=== PATIENT | female | born 1995 | race American Indian/Alaskan Native ===

== ENCOUNTER 2018-05-09 08:00 | Inpatient (IN) | payer BC, MEDICAID ==
[2018-05-09] MEDS: Tranexamic Acid 1,000 MG in Sodium Chloride 0.9% 100 ML IV PRN ×2 (09:44→19:43)
[2018-05-09] MEDS ORDERED: ePHEDrine 50 MG/ML SDV IVPUSH PRN (17:57)
[2018-05-09] MEDS ORDERED: Ibuprofen 800 MG Tab PO PRN (17:57)
[2018-05-09] MEDS ORDERED: ceFAZolin 2 GM in Premix Bag 1 BAG IV ONE (17:57)
[2018-05-09] MEDS ORDERED: Naloxone 2 MG/2 ML Syringe IVPUSH PRN (17:57)
[2018-05-09] MEDS ORDERED: Misoprostol 400 MCG (4 X 100 MCG TAB) RECTAL PRN (17:57)
[2018-05-09] MEDS ORDERED: Methylergonovine 0.2 MG/1 ML Amp IM PRN (17:57)
[2018-05-09] MEDS ORDERED: Ondansetron 4 MG/2 ML SDV IV PRN (17:57)
[2018-05-09] MEDS ORDERED: Citric Acid/Sodium Citrate Solution 30 ML Cup PO ONE (17:57)
[2018-05-09] MEDS ORDERED: Acetaminophen/oxyCODONE 325-5 MG Tab PO PRN (17:57)
[2018-05-09] MEDS ORDERED: Acetaminophen 325 MG Tab PO PRN (17:57)
[2018-05-09] MEDS ORDERED: Carboprost Tromethamine 250 MCG/1 ML Amp IM ONE (17:57)
[2018-05-09] MEDS ORDERED: diphenhydrAMINE 50 MG/ML SDV IVPUSH PRN (17:57)
[2018-05-09] MEDS ORDERED: Oxytocin/Normal Saline 30 UNIT/500 ML BAG IV SCH (18:00)
[2018-05-09] MEDS: Lactated Ringers 1,000 ML IV SCH ×3 (18:26→22:53)
[2018-05-10] MEDS: Simethicone 80 MG Tab.Chew PO SCH ×5 (03:52→21:33)
[2018-05-10] MEDS: Docusate Sodium 100 MG Cap PO PRN ×2 (10:01→21:33)
[2018-05-10] MEDS: Acetaminophen/oxyCODONE 325-5 MG Tab PO PRN ×3 (10:05→17:47)
[2018-05-10] MEDS: Ketorolac 30 MG/ML SDV IVPUSH SCH (11:00)
[2018-05-10] MEDS ORDERED: Ibuprofen 800 MG Tab PO PRN (14:00)
[2018-05-11] MEDS: Docusate Sodium 100 MG Cap PO PRN (08:28)
[2018-05-11] MEDS: Acetaminophen/oxyCODONE 325-5 MG Tab PO PRN ×3 (08:28→17:08)
[2018-05-11] MEDS: Simethicone 80 MG Tab.Chew PO SCH ×3 (08:28→17:09)
[2018-05-11] MEDS: Prenatal Multivitamin with Calcium/Folic Acid/Iron Tab PO SCH (08:32)
[2018-05-12] MEDS: Simethicone 80 MG Tab.Chew PO SCH ×2 (04:21→08:58)
[2018-05-12] MEDS: Acetaminophen/oxyCODONE 325-5 MG Tab PO PRN (07:40)
[2018-05-12] MEDS: Prenatal Multivitamin with Calcium/Folic Acid/Iron Tab PO SCH (07:40)
[2018-05-12 10:54] VITALS: BP 139/82
[2018-05-12] MEDS ORDERED: Bupivacaine 0.75%/D5W 2 ML Amp INJECT ONE (11:46)
[2018-05-12] MEDS ORDERED: Dexamethasone 4 MG/ML SDV IV ONE (11:46)
[2018-05-12] MEDS ORDERED: Ondansetron 4 MG/2 ML SDV IV ONE (11:46)
[2018-05-12] MEDS ORDERED: Morphine PF 1 MG/ML Amp INJECT ONE (11:46)
[2018-05-12] MEDS ORDERED: Lactated Ringers 1,000 ML IV ONE (11:46)
--- NOTE | 2018-05-12 12:15 | OR ---
DATE: 05/09/2018 PREOPERATIVE DIAGNOSES: 1. Intrauterine 38 and 5/7 weeks by 22 and 2/7 weeks' ultrasound. 2. Contractions upon admission. 3. History of with thin lower uterine segment. Recommend delivery with repeat low transverse between 37 and 38 weeks. 4. Previous x3, requests repeat low transverse . 5. Limited/insufficient care. Two visits at [facility] and at least 1 at [facility], last visit was 03/25/2018, at [facility] with Dr. Huntley, that is documented. 6. Impaired glucose tolerance with sugar of 148 on 03/25/2018. No followup thereafter. Blood sugar 106 upon admission. 7. History of hemorrhage with 2 units packed red blood cells with last and last D and C. 8. Positive urine drug screen for methamphetamines and amphetamines. 9. History of asthma. 10.History of preeclampsia on aspirin prophylaxis until yesterday. 11.Group B streptococcus unknown. 12.G4, P2-0-1-2. 13.The patient was given 1 g of tranexamic acid prior to delivery. POSTOPERATIVE DIAGNOSES: 1. Intrauterine 38 and 5/7 weeks by 22 and 2/7 weeks' ultrasound, delivered. 2. Contractions upon admission. 3. History of with thin lower uterine segment. Recommend delivery with repeat low transverse between 37 and 38 weeks. 4. Previous x3, requests repeat low transverse . 5. Limited/insufficient care. Two visits at [facility] and at least 1 at [facility], last visit was 03/25/2018, at [facility] with Dr. Huntley, that is documented. 6. Impaired glucose tolerance with sugar of 148 on 03/25/2018. No followup thereafter. Blood sugar 106 upon admission. 7. History of hemorrhage with 2 units packed red blood cells with last and last D and C. 8. Positive urine drug screen for methamphetamines and amphetamines. 9. History of asthma. 10.History of preeclampsia on aspirin prophylaxis until yesterday. 11.Group B streptococcus unknown. 12.G4, P2-0-1-2. 13.The patient was given 1 g of tranexamic acid prior to delivery. 14.Nuchal cord x1 reduced bluntly with delivery. PROCEDURE PERFORMED: Repeat low transverse . BLOCKER HEATED METAL FORMS: Luli Beth MD. ANESTHESIA: Spinal. ESTIMATED BLOOD LOSS: 600 mL. IV FLUIDS: 1000 mL lactated Ringer's, 200 mL of Pitocin. URINE OUTPUT: 75 mL and agustín colored. START: 1938 hours. UTERINE INCISION: 1941 hours. DELIVERY: 1942 hours. STOP: 1999 hours. FINDINGS: Male, scores 9 and 9, weight pending. DESCRIPTION OF PROCEDURE IN DETAIL: After proper consent was obtained, the patient was brought to the operating room where a spinal anesthetic was administered. A Garza was placed in preop under sterile conditions. The abdomen was prepped and draped in normal sterile fashion with the patient placed in supine position with a left lateral tilt. A skin incision was then made over the lower abdomen in a transverse Pfannenstiel-type fashion over a previous scar. This was carried down the fascia and scored in the midline. Subcutaneous tissue was raked laterally by Pan retractor, and fascial incision was extended in transverse fashion using curved Ervin's. Mirtha clamps x2 were used to grasp the superior aspect of the fascia, and rectus muscles were dissected from the fascia using sharp and blunt technique. In a similar fashion, Mirtha clamps x2 were used to grasp the inferior portion of the incision, and rectus and pyramidalis muscles were dissected from the fascia using sharp and blunt technique. Rectus muscles were in the midline with blunt technique. Abdominal cavity was entered in blunt technique, and incision was extended superiorly and inferiorly with blunt technique. There were some adhesions anteriorly along the left portion of the uterus, these were subsequently lysed under direct visualization with electrocautery. Subsequently, Shamir O large retractor was then introduced and used. Vesicouterine peritoneum was identified and incised in a transverse fashion with Metzenbaum scissors and bladder flap was made digitally. A curvilinear incision was made on the lower uterine segment at 1942 hours. The uterus was entered sharply. Uterine incision was then extended in transverse fashion using blunt technique. Bulging bag of water was noted and ruptured with Allis clamps. Clear fluid returned. vertex was then delivered through the incision followed by rest of the infant with nuchal cord x1 reduced bluntly with delivery. Mouth and nares were suctioned on the patient's lap. Cord was doubly clamped and cut and the was brought to the team. Then, approximately 10 mL of cord blood was obtained for labs. Placenta was then delivered with gentle cord traction and fundal massage. Uterine cavity was then cleared of all blood clots and debris with lap sponge. Gomez clamps were used to grasp the uterine incision, and this was closed in a running locked fashion and tied at lateral margins with 1-0 Vicryl. First inspection of the uterine incision revealed hemostasis. Shamir O retractor was then removed. Pericolic gutters were then cleared of all blood clots and debris with lap sponge. Anterior cul-de-sac was irrigated copiously, and all blood clots and debris removed. Second and final inspection of the uterine incision and anterior cul-de-sac revealed hemostasis. Rectus muscles were then reapproximated in midline with [id number] stitch using 1-0 Vicryl. Subfascial tissue was found to be hemostatic, and fascia was closed in a running fashion, tied at lateral margins with 0 looped PDS. Subcutaneous tissue was irrigated copiously and hemostasis reassured. Skin was reapproximated with medium marcin. Sterile Aquacel dressing applied. Uterine fundus was firm and massaged at the conclusion of the case at approximately -2 below umbilicus. No immediate complications were noted. Sponge, lap, and needle counts were correct. The patient received 2 g of Ancef preoperatively, Pitocin per protocol, and TXA preoperatively. We will defer Toradol at the conclusion of the case for pain control. Mother and are currently stable at the time of dictation. [facility] /[id number]
[2018-05-12] MEDS ORDERED: Oxytocin/Normal Saline 30 UNIT/500 ML BAG IV ONE (12:29)
--- NOTE | 2018-05-12 12:48 | HP ---
PATIENT IDENTIFICATION: Tri Faulkner is a 22-year-old, G4, P2-0-1-2, intrauterine at 38 and 5/7 weeks by 22 and 2/7 weeks' ultrasound with history of previous x2 with last with a very thin lower uterine segment with recommendation to be delivered at 37 to 38 weeks per operative report with limited insufficient care, who presents today in regard to the above. HISTORY OF PRESENT ILLNESS: The patient has been seen at [facility] in the past. She was initially evaluated in the clinic by Dr. Huntley on 03/17/2018, and another visit on 03/25/2018, and then I was unable to reach the patient thereafter. She was approximately 32 and 2/7 weeks at that point in time. We have been trying to reach her due to her thin lower uterine segment and recommendation at 37 to 38 weeks, which she has almost passed at this point in time. The patient does state today she has had some cramps/contractions felt in the lower abdomen, and these are monitored currently on her tocometer. These coincide with her history. She notes last oral intake was approximately 45 minutes to an hour ago with some sandwiches and has been on aspirin until yesterday with last dose being yesterday because she had a history of preeclampsia and was taking this for prevention. She has a history of positive urine drug screen on 12/31/2017, for cannabinoids and amphetamines and confirmed positive for amphetamines in the clinic on 03/17/2018. She admits to using THC. Records were called for, reviewed as below, and supplemented by the patient history. OBSTETRICAL HISTORY: 1. In 10/2016, had a miscarriage with a D and C done with blood transfusion of 2 units packed red blood cells. 2. On 03/07/2016, 38 and 1/7 weeks, delivered a female, repeat low transverse , weighing 3490 g, noted to have positive oxycodone and THC, no care, anemia, transfused 2 units, had some issues with bleeding in PACU that resolved after evacuation of additional clots. 3. On 02/22/2015, 40 and 4/7 weeks, delivered male, primary low transverse C- section, weighing 3995 g. ANTEPARTUM LABORATORY DATA: ABO blood type O positive. Negative antibody. Rubella immune. RPR nonreactive. Negative hepatitis B surface antigen. Hep C, HIV, GC and Chlamydia, wet prep had some BV. ALLERGIES: Sulfa. MEDICATIONS: 1. vitamins. 2. Tums. 3. Aspirin, last dose yesterday 81 mg. PAST MEDICAL/PAST SURGICAL HISTORY: Remarkable for as above. She also had a fracture of the right arm requiring a surgery. In 2014 with the first had preeclampsia and history of blood transfusion with her post , and in 2016, reactive air disease is noted but has used nebs and inhalers in the past for her breathing. FAMILY HISTORY: Arthritis in mother. Diabetes in father and paternal grandfather. Heart disease in paternal grandfather. High blood pressure in father. Stroke runs in the family. Negative family history of defects, thyroid disease, bleeding problems, clotting disorders, or anesthesia problems. SOCIAL HISTORY: Lives in [place] with 2 children. Boyfriend, Rickey Wu, father of baby. No pets. Not working currently. Denies any alcohol. Describes drug use as above with positive methamphetamine today on drug screen. She does smoke cigarettes. REVIEW OF SYSTEMS: Notable for her cramping/contractions felt in the lower abdomen. She has had good movement. No spotting, bleeding, or leaking. Otherwise reviewed fully and felt to be noncontributory. OBJECTIVE: Vital Signs: Blood pressure 135/71, heart rate 101, and temperature 98.3. Appearance: Female, appears her stated age, acting appropriate for age, nontoxic in appearance. HEENT: Head atraumatic. EOMs intact. PERRLA. No scleral icterus. No obvious otorhinorrhea Mucous membranes are moist. Neck: No obvious tenderness. Lungs: Clear to auscultation bilaterally. No increased work of breathing. Heart: S1 and S2. Regular rate and rhythm. Abdomen: Gravid, Afshin's indeterminate. Nontender and nondistended. Bowel sounds positive. No other organomegaly, pulsatile masses, or obvious hernias. No rebound, rigidity, or guarding with Pfannenstiel scar noted. Genitourinary: Deferred. Rectal: Deferred. Extremities: No peripheral edema. Deep tendon reflexes 2-3/4 bilaterally and symmetric in lower extremities. Psychiatric: Mood and affect are congruent. Judgment and insight are intact. Skin: Without any cyanosis, clubbing, or jaundice. INVESTIGATIONS: Urine drug screen was positive for methamphetamines and amphetamines. CBC reveals white cell count 10.4, hemoglobin 11.8, platelets 191. A bedside blood sugar is 106. Tocometer at current time of dictation within less than 10 minutes there have been 2 to 3 contractions with heart tones with no evidence of 15 x 15 beat per minute accelerations as of 1820 hours. ASSESSMENT: 1. Intrauterine at 38 and 5/7 weeks by 22 and 2/7 weeks' ultrasound. 2. Contractions upon admission and coinciding with the tocometer. 3. History of section with thin lower uterine segment with recommended delivery with repeat low transverse at 37 to 38 weeks per previous operative report. 4. Previous section x2, request repeat low transverse section. 5. Limited insufficient care. 6. Group B streptococcus unknown. GBS will be done today. 7. Impaired glucose tolerance with sugar of 148 on 03/25/2018, with blood sugar today 106. 8. History of hemorrhage with 2 units packed red blood cells noted with her dilation and curettage and with her last section as above. 9. Positive urine drug screen for methamphetamines and amphetamines upon admit. 10.History of preeclampsia on aspirin prophylaxis with yesterday being last dose. 11. 4, para 2-0-1-2. PLAN: As there are current no accelerations noted on the heart tones, the patient is having contractions and has a thin lower uterine segment, with recommendation to deliver between 37 and 38 weeks, and she is almost past 38 weeks. I did discuss with the patient recommendation to proceed with repeat low transverse . I did discuss nonreassuring status as well. Emergent type has been called for and discussed with [employer]ATOR through nurse. I did discuss with her the risks, benefits, alternatives, and complications of C- section including, but not limited to, infection, bleeding, damage to internal organs such as bowel, bladder, tubes, uterus, ovaries, sometimes fetus rarely needing a blood transfusion or further surgery and even rarer maternal or . She understands and agrees and wishes to proceed. Verbal and written consent were obtained. Questions were answered. We will proceed to the OR as soon as crew is ready and available. [facility] /[id number]
--- NOTE | 2018-05-12 13:29 | PN ---
DATE: 05/10/2018 Postoperative day #1, status post repeat low-transverse . SUBJECTIVE: The patient has been tolerating p.o.'s. She has not ambulated much. Garza is in place. No flatus at this point in time. Pain is under control. OBJECTIVE: Vital Signs: Temperature 97.6, heart rate 64, blood pressure 125/61, and respiratory rate 18. Lungs: Clear to auscultation bilaterally. Heart: S1 and S2. Regular rate and rhythm. Pelvic: Firm uterus at -1 below umbilicus. Aquacel dressing dry and intact. Extremities: SCDs are on. LABORATORY DATA: White cell count 15.7, hemoglobin 10.6, and platelets 173. ASSESSMENT: 1. Postoperative day #1, status post repeat low-transverse section. 2. Anemia of acute blood loss. Hemoglobin dropped from 11.8 to 10.6. 3. Decreasing platelets, 191 to 173. PLAN: We will repeat CBC tomorrow, follow closely, and plans were discussed with the patient. She understands and agrees with the above treatment plan. [facility] /[id number]
--- NOTE | 2018-05-12 13:32 | PN ---
DATE: 05/11/2018 Postoperative day #2. SUBJECTIVE: The patient is tolerating p.o., ambulating, urinating, passing flatus. Pain has been under control, but she felt that she walked too much yesterday and she is somewhat sore. OBJECTIVE: Vital Signs: Temperature 97.8, heart rate 73, blood pressure 124/66, respiratory rate 18. Lungs: Clear to auscultation bilaterally. Heart: S1 and S2. Regular rate and rhythm. Pelvic: Firm uterus -2 below umbilicus. Aquacel dressing is dry and intact. Extremities: No peripheral edema. No calf pain. LABORATORY DATA: Labs from yesterday revealed that her hemoglobin dropped from 11.8 to 10.6 predelivery to postdelivery, and white cell count up to 15.7 from 10.4. ASSESSMENT: 1. Postoperative day #2, status post repeat low transverse section. 2. Anemia of acute blood loss. 3. Leukocytosis postoperative day #1. PLAN: We will repeat CBC tomorrow. The patient is otherwise asymptomatic in terms of her hemoglobin. She denies any chest pain, shortness of breath, or lightheadedness. There have been no fevers, but we will re-evaluate tomorrow. Potential discharge for tomorrow as well. [facility] /[id number]
--- NOTE | 2018-05-13 10:32 | DISCH ---
ADMITTING DIAGNOSES: 1. Intrauterine at 38 and 5/7 weeks by 22 and 2/7 weeks' ultrasound. 2. History of section with thin lower uterine segment. Recommend delivery with repeat low-transverse section between 37 and 38 weeks from previous operative report. 3. Contraction upon admit. 4. Previous section x2, request repeat low-transverse section. 5. Impaired glucose tolerance. One-hour GTT being 148 on 03/25/2018. No followup thereafter. 6. Limited/insufficient care. 7. History of hemorrhage. Two units of packed red blood cells with last section and with last dilatation and curettage. 8. Positive urine drug screen for methamphetamines and amphetamines. 9. History of asthma. 10.History of preeclampsia. 11.Off aspirin yesterday due to preeclampsia prophylaxis. 12.Group B streptococcus unknown. 13.G4, P-2-0-1-2. DISCHARGE DIAGNOSES: 1. Intrauterine at 38 and 5/7 weeks by 22 and 2/7 weeks' ultrasound, delivered. 2. History of section with thin lower uterine segment. Recommend delivery with repeat low-transverse section between 37 and 38 weeks from previous operative report. 3. Contraction upon admit. 4. Previous section x2, request repeat low-transverse section. 5. Impaired glucose tolerance. One-hour GTT being 148 on 03/25/2018. No followup thereafter. 6. Limited/insufficient care. 7. History of hemorrhage. Two units of packed red blood cells with last section and with last dilatation and curettage. 8. Positive urine drug screen for methamphetamines and amphetamines. 9. History of asthma. 10.History of preeclampsia. 11.Off aspirin day prior to admit due to preeclampsia prophylaxis. 12.Group B streptococcus unknown. 13.G4, P-2-0-1-2. 14.Repeat low transverse section. 15.Nuchal cord x1, reduced bluntly with delivery. 16.True cord knot. HISTORY OF PRESENT ILLNESS: Please see H and P. SUMMARY OF HOSPITAL COURSE: The patient was admitted on the above date with the above diagnoses, underwent a repeat low-transverse with an EBL of 600 mL under spinal, yielding a male. scores 9 and 9, weighing 8 pounds 6 ounces (3805 g). Please see operative note for further details. This had a true cord knot as well as a nuchal cord x1, reduced bluntly with delivery. Postoperative days #1 and #2, please see progress note. Postoperative day #3, date of discharge, the patient was tolerating p.o.'s, ambulating, urinating, passing flatus, and requesting discharge. PHYSICAL EXAMINATION: Vital Signs: Last set of vitals updated and listed in the chart. Temperature 98.5, heart rate 83, blood pressure 120/59, and respiratory rate 16. Lungs: Clear to auscultation bilaterally. Heart: S1 and S2. Regular rate and rhythm. Abdomen: Firm uterus approximately around the umbilicus. Aquacel dressing dry and intact. LABORATORY DATA: Discharge white cell count 11.4, hemoglobin 10.4, and platelets 222. CONDITION ON DISCHARGE COMPARED TO CONDITION ON ADMISSION: Improved. DISCHARGE INSTRUCTIONS: Diet as tolerated. Activity; no lifting more than 20 pounds. No sit-ups, straining, and pelvic rest for the next 6 weeks with immediate return to fertility discussed with the patient. Reasons to return or go to the emergency room were discussed with the patient in detail including, but not limited to, temperature greater than 100.4, foul- smelling discharge, red hot tender breasts, increased vaginal bleeding, or increasing pain, drainage, or redness around the incision. FOLLOWUP: Follow up on 05/15/2018, for staple removal. I did discuss with her in the interim reasons to return or go to the emergency room in regard to her . DISCHARGE MEDICATIONS: 1. [id number] ibuprofen for pain. 2. Percocet 5/325 one to two q.6 hours p.r.n., #15, no refills. Discussed the use of the medication, adverse and wanted effects, as well as precautions with driving. 3. Iron sulfate 325 b.i.d. x6 weeks. 4. vitamins daily x6 weeks. 5. Colace 100 mg b.i.d. p.r.n. The patient understands and agrees with the above treatment plan. The importance of followup and ramifications of not doing so were discussed with the patient. [facility] /[id number] [facility]
== END 2018-05-12 11:30 | disposition home or self-care (01) | DRG 540 ==
LOC: DL.MS 18:02 → OBSVTOIN 19:43 → DL.MS 19:43
PROVIDERS: ADMIT Family Medicine; ATTEND Family Medicine
PROC: 10D00Z1 Extraction of Products of Conception, Low, Open Approach (ICD-10-PCS; principal; 2018-05-09)
DX: O34.211 Maternal care for low transverse scar from previous cesarean delivery (principal); Z3A.38 38 weeks gestation of pregnancy; Z37.0 Single live birth; O34.593 Maternal care for other abnormalities of gravid uterus, third trimester; O99.324 Drug use complicating childbirth; F15.90 Other stimulant use, unspecified, uncomplicated; O99.334 Smoking (tobacco) complicating childbirth; F17.210 Nicotine dependence, cigarettes, uncomplicated; O99.02 Anemia complicating childbirth; D62 Acute posthemorrhagic anemia; O69.81X0 Labor and delivery complicated by cord around neck, without compression, not applicable or unspecified
CPT/HCPCS: 36415; 51702; 80305-QW; 82962; 85027; 86850; 86900; 86901; 87081; A9270-GY; J0690; J1100; J2274; J2405; J2590; J7050; J7120

== ENCOUNTER 2019-01-03 10:42 | Emergency (ER) | payer BC, MEDICAID ==
[2019-01-03 11:02] VITALS: BP 149/74
[2019-01-03 12:39] LABS: ANION GAP 14.6; CHLORIDE,CL 99 mmol/L (101-111); SODIUM,NA 130 mmol/L (135-145)
--- NOTE | 2019-01-03 12:41 | EDM.PDOC ---
ED HPI GENERAL MEDICAL PROBLEM - General Chief Complaint: Abdominal Pain Stated Complaint: ABD JUAN MANUEL,ACHY [id number] Time Seen by Provider: 01/03/19 12:07 Source of Information: Reports: Patient, RN, RN Notes Reviewed History Limitations: Reports: No Limitations - History of Present Illness INITIAL COMMENTS - FREE TEXT/NARRATIVE: Pt to ER with c/o being achey and sore, headaches, cough, abdominal pain for the past week. Patient admits to fever, chills, nausea. Denies vomiting or diarrhea. Patient states her LMP was last month but was abnormal, brownish in color. Onset: Gradual Duration: Constant, Getting Worse Location: Reports: Abdomen Quality: Reports: Sharp Severity: Moderate Improves with: Reports: None Worsens with: Reports: None Associated Symptoms: Reports: Cough, Fever/Chills, Headaches, Nausea/Vomiting Treatments ADMISSIONS RECRUITER: Reports: NSAIDS Abdominal Pain Score (Numeric/FACES): 9 - Related Data Allergies Allergy/AdvReac Type Severity Reaction Status Date / Time sulfamethoxazole Allergy Unknown Cannot Verified 01/03/19 11:02 [From Bactrim] Remember trimethoprim [From Bactrim] Allergy Unknown Cannot Verified 01/03/19 11:02 Remember Home Meds: Home Meds . 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 History: Reports: Fracture Neurological History: Reports: None Psychiatric History: Reports: Anxiety, Depression Other Psychiatric History: Drug use THC Endocrine/Metabolic History: Reports: None Hematologic History: Reports: Anemia Immunologic History: Reports: None Oncologic (Cancer) History: Reports: None Dermatologic History: Reports: None - Infectious Disease History Infectious Disease History: Reports: None - Past Surgical History Head Surgeries/Procedures: Reports: None Female Surgical History: Reports: Section, Other (See Below) Other Female Surgeries/Procedures: x3 Social & Family History - Family History Family Medical History: Noncontributory HEENT: Reports: None Cardiac: Reports: None Respiratory: Reports: None GI: Reports: None : Reports: None OBGYN: Reports: None Musculoskeletal: Reports: None Neurological: Reports: None Psychiatric: Reports: None Endocrine/Metabolic: Reports: Other (See Below) Other Endocrine/Metabolic Family History: hx diabetes in family Hematologic: Reports: None Immunologic: Reports: None Dermatologic: Reports: None - Tobacco Use Smoking Status *Q: Current Every Day Smoker Years of Tobacco use: 15 Packs/Tins Daily: 1 - Caffeine Use Caffeine Use: Reports: Coffee, Energy Drinks, Soda Caffeine Use Comment: ABOUT ONE A DAY - Recreational Drug Use Recreational Drug Use: No ED ROS GENERAL - Review of Systems Review Of Systems: ROS reveals no pertinent complaints other than HPI. ED EXAM, GI/ABD - Physical Exam Exam: See Below Exam Limited By: No Limitations General Appearance: Alert, WD/WN, Mild Distress Eyes: Bilateral: Normal Appearance, EOMI Ears: Normal External Exam, Hearing Grossly Normal Nose: Normal Inspection Throat/Mouth: Normal Inspection, Normal Voice, No Airway Compromise Head: Atraumatic, Normocephalic Neck: Normal Inspection, Supple, Non-Tender, Full Range of Motion Respiratory/Chest: No Respiratory Distress, Lungs Clear, Normal Breath Sounds, No Accessory Muscle Use, Chest Non-Tender Cardiovascular: Normal Peripheral Pulses, Regular Rate, Rhythm, No Edema, No Gallop, No JVD, No Murmur, No Rub GI/Abdominal Exam: Normal Bowel Sounds, Soft, No Organomegaly, No Distention, No Abnormal Bruit, No Mass, Pelvis Stable, Tender (RLQ, LLQ) (Female) Exam: Deferred Rectal (Female) Exam: Deferred Back Exam: Normal Inspection, Full Range of Motion. No: CVA Tenderness (L), CVA Tenderness (R) Extremities: Normal Inspection, Normal Range of Motion, Non-Tender, Normal Capillary Refill, No Pedal Edema Neurological: Alert, Oriented, CN II-XII Intact, Normal Cognition, Normal Gait, Normal Reflexes, No Motor/Sensory Deficits Psychiatric: Normal Affect, Normal Mood Skin Exam: Warm, Dry, Intact, Normal Color, No Rash Lymphatic: No Adenopathy Course - Vital Signs Last Recorded V/S: Last Vital Signs Temp 100.0 F 01/03/19 10:55 Pulse 104 H 01/03/19 10:55 Resp 20 01/03/19 10:55 BP 149/74 H 01/03/19 10:55 Pulse Ox 100 01/03/19 10:55 - Orders/Labs/Meds Orders: Active Orders 24 hr Category Date Time Status CULTURE URINE [RM] Stat Lab 01/03/19 11:04 Results Labs: Laboratory Tests 01/03/19 01/03/19 01/03/19 Range/Units 11:04 11:04 11:04 WBC (5.0-10.0) 10^3/uL RBC (4.2-5.4) 10^6/uL Hgb (12.0-16.0) g/dL Hct (37.0-47.0) % MCV (80-100) fL MCH (27.0-34.0) pg MCHC (33.0-35.0) g/dL Plt Count (150-450) 10^3/uL Neut % (Auto) (42.2-75.2) % Lymph % (Auto) (20.5-50.1) % [place] % (Auto) (2-8) % Eos % (Auto) (1.0-3.0) % Baso % (Auto) (0.0-1.0) % Sodium (135-145) mmol/L Potassium (3.6-5.0) mmol/L Chloride (101-111) mmol/L Carbon Dioxide (21.0-31.0) mmol/L Anion Gap BUN (7-18) mg/dL Creatinine (0.6-1.3) mg/dL Est Cr Clr Drug Dosing mL/min Estimated GFR (MDRD) BUN/Creatinine Ratio Glucose (74-105) mg/dL Calcium (8.4-10.2) mg/dl Total Bilirubin (0.2-1.0) mg/dL AST (10-42) IU/L ALT (10-60) IU/L Alkaline Phosphatase (42-121) IU/L Total Protein (6.7-8.2) g/dl Albumin (3.2-5.5) g/dl Globulin Albumin/Globulin Ratio HCG, Quant (0-25) mIU/ml Beta HCG, Quant mIU/ml Urine Color Yellow (YELLOW) Urine Appearance Clear (CLEAR) Urine pH 8.5 (5.0-9.0) Ur Specific [place] 1.015 (1.005-1.030) Urine Protein 30 H (NEGATIVE) Urine Glucose (UA) Negative (NEGATIVE) Urine Ketones 15 H (NEGATIVE) Urine Occult Blood Trace-intact H (NEGATIVE) Urine Nitrite Negative (NEGATIVE) Urine Bilirubin Negative (NEGATIVE) Urine Urobilinogen 4.0 H (0.2-1.0) mg/dL Ur Leukocyte Esterase Small H (NEGATIVE) Urine RBC 0-5 /HPF Urine WBC 10-20 H (0-5/HPF) /HPF Ur Epithelial Cells Many H /HPF Urine Bacteria Moderate H (0-FEW/HPF) /HPF Urine Mucus Few H /LPF Urine HCG, Qual Positive Urine Opiates Screen Negative (NEGATIVE) Ur Oxycodone Screen Negative (NEGATIVE) Urine Methadone Screen Negative (NEGATIVE) Ur Barbiturates Screen Negative (NEGATIVE) U Tricyclic Antidepress Negative (NEGATIVE) Ur Phencyclidine Scrn Negative (NEGATIVE) Ur Amphetamine Screen Negative (NEGATIVE) U Methamphetamines Scrn Positive H (NEGATIVE) Urine MDMA Screen Negative (NEGATIVE) U Benzodiazepines Scrn Negative (NEGATIVE) Urine Cocaine Screen Negative (NEGATIVE) U Marijuana (THC) Screen Positive H (NEGATIVE) 01/03/19 01/03/19 01/03/19 Range/Units 12:14 12:14 12:14 WBC 12.6 H (5.0-10.0) 10^3/uL RBC 4.62 (4.2-5.4) 10^6/uL Hgb 12.8 D (12.0-16.0) g/dL Hct 37.8 (37.0-47.0) % MCV 81.8 D (80-100) fL MCH 27.7 (27.0-34.0) pg MCHC 33.9 (33.0-35.0) g/dL Plt Count 159 (150-450) 10^3/uL Neut % (Auto) 89.9 H (42.2-75.2) % Lymph % (Auto) 4.2 L (20.5-50.1) % [place] % (Auto) 5.6 (2-8) % Eos % (Auto) 0.2 L (1.0-3.0) % Baso % (Auto) 0.1 (0.0-1.0) % Sodium 130 L (135-145) mmol/L Potassium 3.6 (3.6-5.0) mmol/L Chloride 99 L (101-111) mmol/L Carbon Dioxide 20.0 L (21.0-31.0) mmol/L Anion Gap 14.6 BUN 9 (7-18) mg/dL Creatinine 0.6 (0.6-1.3) mg/dL Est Cr Clr Drug Dosing 123.77 mL/min Estimated GFR (MDRD) > 60 BUN/Creatinine Ratio 15.00 Glucose 93 (74-105) mg/dL Calcium 8.7 (8.4-10.2) mg/dl Total Bilirubin 0.6 (0.2-1.0) mg/dL AST 25 (10-42) IU/L ALT 39 (10-60) IU/L Alkaline Phosphatase 85 (42-121) IU/L Total Protein 6.7 (6.7-8.2) g/dl Albumin 3.1 L (3.2-5.5) g/dl Globulin 3.6 Albumin/Globulin Ratio 0.86 HCG, Quant > 1359 H (0-25) mIU/ml Beta HCG, Quant 70399 mIU/ml Urine Color (YELLOW) Urine Appearance (CLEAR) Urine pH (5.0-9.0) Ur Specific Lawrence (1.005-1.030) Urine Protein (NEGATIVE) Urine Glucose (UA) (NEGATIVE) Urine Ketones (NEGATIVE) Urine Occult Blood (NEGATIVE) Urine Nitrite (NEGATIVE) Urine Bilirubin (NEGATIVE) Urine Urobilinogen (0.2-1.0) mg/dL Ur Leukocyte Esterase (NEGATIVE) Urine RBC /HPF Urine WBC (0-5/HPF) /HPF Ur Epithelial Cells /HPF Urine Bacteria (0-FEW/HPF) /HPF Urine Mucus /LPF Urine HCG, Qual Urine Opiates Screen (NEGATIVE) Ur Oxycodone Screen (NEGATIVE) Urine Methadone Screen (NEGATIVE) Ur Barbiturates Screen (NEGATIVE) U Tricyclic Antidepress (NEGATIVE) Ur Phencyclidine Scrn (NEGATIVE) Ur Amphetamine Screen (NEGATIVE) U Methamphetamines Scrn (NEGATIVE) Urine MDMA Screen (NEGATIVE) U Benzodiazepines Scrn (NEGATIVE) Urine Cocaine Screen (NEGATIVE) U Marijuana (THC) Screen (NEGATIVE) - Radiology Interpretation Free Text/Narrative:: Abdominal US: Single live first trimester 11 week 5 day intrauterine gestation See rad report - Re-Assessments/Exams Free Text/Narrative Re-Assessment/Exam: 01/04/19 10:18 Patient was unaware of . Patient was distraught when told that she was . She states "my life is over, can I get an ?". Patient was instructed to seek help on Saturday. She was instructed to stay away from smoking , drugs, or alcohol in the meantime, and seek an OB appointment. Departure - Departure Time of Disposition: 14:26 Disposition: Home, Self-Care 01 Condition: Fair Clinical Impression: Bacterial vaginosis, First trimester UTI (urinary tract infection) Qualifiers: Urinary tract infection type: acute cystitis Hematuria presence: without hematuria Qualified Code(s): N30.00 - Acute cystitis without hematuria - Discharge Information *PRESCRIPTION DRUG MONITORING PROGRAM REVIEWED*: No *COPY OF PRESCRIPTION DRUG MONITORING REPORT IN PATIENT SULEMA: No Instructions: Preventing Defects With Folic Acid, Antibiotic Medicine, Adult, [id number], First Trimester of , [id number], Urinary Tract Infection, Adult, [id number], Bacterial Vaginosis, [id number] Referrals: Felipe Huntley MD [Primary Care Provider] - Forms: ED Department Discharge Additional Instructions: RX: Macrobid, Metronidazole Begin taking a vitamin Refrain from using Marijuana or any other drugs or alcohol Drink plenty of water Make an initial OB appointment - My Orders Last 24 Hours: My Active Orders 01/03/19 11:04 CULTURE URINE [RM] Stat - Assessment/Plan Last 24 Hours: My Active Orders 01/03/19 11:04 CULTURE URINE [RM] Stat
--- NOTE | 2019-01-03 14:22 | US ---
Clinical history: 23-year-old "gravid" (positive serum hCG) female. Rule out extrauterine . Interpretation: Midline uterus enlarged with central gestational sac and intraluminal pole. crown-rump length measurement 4.8 cm approximates 11 week 5 day gestation and heart rate 181 bpm. Symmetric normal-appearing ovaries. No adnexal mass lesion. No free fluid in the cul-de-sac. Right ovary measures 2.53 x 1.95 x 2.11 cm. Left ovary measures 3.47 cm L x 2.31 cm AP diameter. CONCLUSION: Single live first trimester 11 week 5 day intrauterine gestation.
== END 2019-01-03 14:40 | disposition home or self-care (01) ==
LOC: DL.ED 10:42
DX: O23.591 Infection of other part of genital tract in pregnancy, first trimester (principal); B96.89 Other specified bacterial agents as the cause of diseases classified elsewhere; O99.331 Smoking (tobacco) complicating pregnancy, first trimester; F17.210 Nicotine dependence, cigarettes, uncomplicated; Z88.2 Allergy status to sulfonamides; Z88.1 Allergy status to other antibiotic agents; Z3A.11 11 weeks gestation of pregnancy
CPT/HCPCS: 36415; 76801; 80053; 80305-QW; 81001; 81025; 84702; 85025; 87086; 87088; 87186; 87804; 99284-25

== ENCOUNTER 2019-06-30 06:25 | Inpatient (IN) | payer MEDICAID ==
[~2019-06-30 06:25] MED LIST: Carboprost Tromethamine 250 MCG/1 ML Amp IM PRN; Citric Acid/Sodium Citrate Solution 30 ML Cup PO ONE; Lactated Ringers 1,000 ML IV SCH; Methylergonovine 0.2 MG Tab PO PRN; Oxytocin 10 Units/1 ML SDV IM PRN; Oxytocin/Normal Saline 30 UNIT/500 ML BAG IV SCH; Sodium Chloride 0.9% 10 ML Syringe FLUSH PRN; Tranexamic Acid 1,000 MG in Sodium Chloride 0.9% 100 ML IV PRN; ceFAZolin 2 GM in Premix Bag 1 BAG IV ONE
[2019-06-30] MEDS: Lactated Ringers 1,000 ML IV SCH ×4 (06:45→18:10)
[2019-06-30] MEDS ORDERED: Citric Acid/Sodium Citrate Solution 30 ML Cup ONE (07:00)
[2019-06-30] MEDS ORDERED: Oxytocin/Normal Saline 60 UNIT/1,000 ML BAG ONE (07:09)
--- NOTE | 2019-06-30 07:41 | PCM.HPR ---
H & P Addendum review - H & P Addendum Review Date of Original H & P: 06/26/19 Date Reviewed: 06/30/19 Time Reviewed: 07:40 Patient was Examined: No Changes
[2019-06-30] MEDS ORDERED: Methylergonovine 0.2 MG/1 ML Amp IM PRN (09:02)
[2019-06-30] MEDS ORDERED: Misoprostol 400 MCG (4 X 100 MCG TAB) RECTAL PRN (09:02)
[2019-06-30] MEDS ORDERED: Acetaminophen/oxyCODONE 325-5 MG Tab PO PRN ×2 (09:02)
[2019-06-30] MEDS ORDERED: Naloxone 2 MG/2 ML Syringe IVPUSH PRN (09:02)
[2019-06-30] MEDS ORDERED: diphenhydrAMINE 50 MG/ML SDV IVPUSH PRN (09:02)
[2019-06-30] MEDS ORDERED: Acetaminophen 325 MG Tab PO PRN (09:02)
[2019-06-30] MEDS ORDERED: ePHEDrine 50 MG/ML SDV IVPUSH PRN (09:02)
[2019-06-30] MEDS ORDERED: Docusate Sodium 100 MG Cap PO PRN (09:02)
[2019-06-30] MEDS ORDERED: Ondansetron 4 MG/2 ML SDV IV PRN (09:02)
[2019-06-30] MEDS ORDERED: Lactated Ringers 1,000 ML IV SCH ×2 (09:15→18:30)
[2019-06-30] MEDS ORDERED: Ketorolac 30 MG/ML SDV IVPUSH ONE (13:54)
[2019-06-30] MEDS ORDERED: Tranexamic Acid 1,000 MG in Sodium Chloride 0.9% 100 ML IV ONE (13:54)
[2019-06-30] MEDS ORDERED: Morphine PF 1 MG/ML Amp ONE ×2 (13:54→13:57)
[2019-06-30] MEDS ORDERED: Ketorolac 30 MG/ML SDV IVPUSH SCH (14:00)
[2019-06-30] MEDS: Simethicone 80 MG Tab.Chew PO SCH ×2 (14:46→18:26)
[2019-06-30 16:36] VITALS: BP 130/78; PULSE 61
--- NOTE | 2019-06-30 17:15 | PCM.PRNOTE ---
- Free Text/Narrative Note: Section Operative Report Date of Surgery: 06/30/2019 Surgeon: Flores He MD [employer] Tube Bender: Dr. Tyree Deras MD Pre-Operative Diagnosis: 23-year-old at 37w1d with history of section x3 History of thin lower uterine segment and adhesion History of hemorrhage Late care Methamphetamine use in Post-Operative Diagnosis: Same Procedure Performed: Repeat low transverse section Anesthesia: Spinal EBL: 600 mL IVF: 1,000 mL Drains: Garza catheter with 250 mL of urine output Specimens: Umbilical cord for drug screen Complications: None apparent Findings: Normal uterus, tubes, and ovaries. Indication and Consent: The patient presented to floor today for scheduled at term due to hx of prior and desire for elective repeat . The patient understood that the risks of section include, but are not limited to, visceral or vascular injury, infection, blood loss and need for blood transfusion, prolonged hospitalization, and reoperation. The patient again stated understanding and desired to proceed. All questions were answered. Procedure in Detail: The patient was taken to the operating room where spinal anesthesia was placed and found to be adequate. 2 grams of cefazolin (Ancef) were given for infection prophylaxis. 1 gram of TXA was also given to help prevent hemorrhage given the patient's history. She was then prepped and draped in routine fashion in dorsal supine position with a left emanuel tilt. Garza catheter and pneumoboots were placed. A Pfannenstiel skin incision was made with a scalpel. The incision was carried down to the fascia sharply. The fascia was incised and extended laterally. The inferior aspect of the fascia was grasped with Mirtha clamps; the underlying rectus muscle and pyramidalis was dissected off with sharp and blunt technique. This was technically difficult as patient had some significant scar tissue involving the facia and peritoneum.l In a similar fashion, the superior aspect of the fascia was elevated with Mirtha clamps and the rectus muscle was dissected off. Hemostasis was achieved with the Bovie. The rectus musculature was in the midline down to the level of the pubic symphysis. Pre- peritoneal fatty tissue was bluntly dissected to expose the peritoneum. The peritoneum was found to be free of adherent bowel or bladder tissue and entered bluntly. The peritoneal opening was then extended superiorly and inferiorly using sharp dissection because of significant scar tissues to the bladder reflection with good visualization of the bladder. The Shamir retractor was inserted. Intraabdominal survey revealed scant, clear peritoneal fluid and thinned-out lower uterine segment. The vesicouterine peritoneum was opened with a pickup and mets, and the bladder flap was developed. The lower uterine segment was incised with a scalpel. The amniotic sac was ruptured with an Allis clamp and clear fluid was noted. The uterine incision was extended bluntly with lateral and upward traction. The fetus was in cephalic position. The head was elevated out of the maternal pelvis with special attention paid to avoid using the uterine incision as a fulcrum. Gentle fundal pressure was applied once the head was brought into the incision. The was delivered with minimal difficulty. Bulb suctioning of the 's nose and mouth was performed on the operative field. The cord was clamped and cut in standard fashion, and the infant was handed over to the awaiting nursery staff. Cord blood was collected. IV oxytocin was initiated to facilitate uterine contractions. The placenta was delivered intact with manual message of the uterine fundus along with gentle cord traction. The uterus was then exteriorized. The inside of the uterus was gently wiped with a lap sponge to assure complete removal of remaining products of conception. The uterine incision was closed with 0 - Vicryl suture in a running locked fashion. A second suture was used to place a figure-of-8 stitch on the left apex of the uterine incision. The incision was inspected and hemostasis was achieved. The ovaries and tubes were visualized and found to be normal. The uterus, tubes, and ovaries were returned to the abdominal cavity. The blood clots and fluid were wiped out of the abdomen and pelvis with moist laparotomy sponges. The Shamir retractor was removed. The uterine incision was re-inspected along with all other incised surfaces and good hemostasis was confirmed. Peritoneal layer was cosed with 2-0 Vicryl in a continuous manner. The fascia was then closed with 2-0 looped PDS suture with care not to include any underlying abdominal contents. The sub-cutaneous layer was reapproximated with suture. The skin was closed with 4-0 Monocryl suture on a Junior needle in a subcuticular fashion. Sponge and instrument counts were reported as correct x2. Patient tolerated procedure well and was taken to PACU in stable condition. Flores He MD
--- NOTE | 2019-06-30 17:21 | PCM.DEL ---
L & D Note - General Info Date of Service: 06/30/19 Mother's Due Date: 07/20/19 - Delivery Note Delivery Outcome: Livebirth Infant Delivery Method: Repeat Presentation: Vertex Nuchal Cord: None (Body cord with true knot noted) Anesthesia Type: Spinal Amniotic Fluid Description: Clear Episiotomy Type: None Laceration: None Placenta: Intact Resuscitation Needed: Yes [place]: Suctioned, Bulb Syringe, Stimulated, Warmed, [place] Used, Warmer Used Score 1 min: 8 Score 5 min: 9 Delivery Comments (Free Text/Narrative):: Please see procedure note for details - General Info Date of Service: 06/30/19 - Patient Data Vitals - Most Recent: Last Vital Signs Temp 36.6 C 06/30/19 14:00 Pulse 61 06/30/19 15:00 Resp 16 06/30/19 15:00 BP 130/78 06/30/19 15:00 Pulse Ox 98 06/30/19 12:00 Weight - Most Recent: 91.172 kg I&O - Last 24 Hours: Intake & Output 06/30/19 06/30/19 06/30/19 06:59 14:59 22:59 Intake Total 2850 600 Output Total 100 200 Balance 2750 400 Lab Results Last 24 Hours: Laboratory Results - last 24 hr 06/30/19 06/30/19 06/30/19 Range/Units 06:36 06:36 06:58 WBC 13.4 H (5.0-10.0) 10^3/uL RBC 4.60 (4.2-5.4) 10^6/uL Hgb 11.8 L (12.0-16.0) g/dL Hct 36.9 L (37.0-47.0) % MCV 80.2 (80-100) fL MCH 25.7 L (27.0-34.0) pg MCHC 32.0 L (33.0-35.0) g/dL Plt Count 188 (150-450) 10^3/uL Neut % (Auto) 75.3 H (42.2-75.2) % Lymph % (Auto) 18.6 L (20.5-50.1) % [place] % (Auto) 3.7 (2-8) % Eos % (Auto) 2.2 (1.0-3.0) % Baso % (Auto) 0.2 (0.0-1.0) % Urine Opiates Screen Negative (NEGATIVE) Ur Oxycodone Screen Negative (NEGATIVE) Urine Methadone Screen Negative (NEGATIVE) Ur Barbiturates Screen Negative (NEGATIVE) U Tricyclic Antidepress Negative (NEGATIVE) Ur Phencyclidine Scrn Negative (NEGATIVE) Ur Amphetamine Screen Positive H (NEGATIVE) U Methamphetamines Scrn Positive H (NEGATIVE) Urine MDMA Screen Negative (NEGATIVE) U Benzodiazepines Scrn Negative (NEGATIVE) Urine Cocaine Screen Negative (NEGATIVE) U Marijuana (THC) Screen Negative (NEGATIVE) Blood Type O POSITIVE Gel Antibody Screen Negative Med Orders - Current: Current Medications Acetaminophen (Tylenol) 650 mg PO Q6H PRN PRN Reason: mild pain or fever Carboprost Tromethamine (Hemabate Ds) 250 mcg IM ASDIRECTED PRN PRN Reason: Excessive vaginal bleeding Diphenhydramine HCl (Benadryl) 25 mg IVPUSH Q6H PRN PRN Reason: Itching or Nausea Last Admin: 06/30/19 11:20 Dose: 25 mg Docusate Sodium (Colace) 100 mg PO Q12H PRN PRN Reason: Constipation Ephedrine Sulfate (Ephedrine Sulfate) 5 mg IVPUSH SEECOMMENT PRN PRN Reason: Other Tranexamic Acid 1,000 mg/ (Sodium Chloride) 110 mls @ 660 mls/hr IV ONETIME PRN PRN Reason: Bleeding Oxytocin/Sodium Chloride (Pitocin In Ns 30 Unit/500 Ml) 30 unit in 500 mls @ 2 mls/hr IV TITRATE DEONDRE; Protocol Last Titration: 06/30/19 12:14 Dose: 0 mls/hr Lactated Ringer's (Ringers, Lactated) 1,000 mls @ 125 mls/hr IV ASDIRECTED DEONDRE Last Admin: 06/30/19 12:16 Dose: 125 mls/hr Lactated Ringer's (Ringers, Lactated) 1,000 mls @ 500 mls/hr IV .BOLUS DEONDRE Lactated Ringer's (Ringers, Lactated) 1,000 mls @ 125 mls/hr IV ASDIRECTED DEONDRE Ibuprofen (Motrin) 800 mg PO Q8H PRN PRN Reason: mild pain or fever Ketorolac Tromethamine (Toradol) 15 mg IVPUSH Q6H DEONDRE Stop: 07/01/19 02:01 Last Admin: 06/30/19 14:45 Dose: 15 mg Methylergonovine Maleate (Methergine) 0.2 mg PO ONETIME PRN PRN Reason: Excessive vaginal bleeding Methylergonovine Maleate (Methergine) 0.2 mg IM ONETIME PRN PRN Reason: Excessive Vaginal Bleeding Misoprostol (Cytotec) 800 mcg RECTAL ASDIRECTED PRN PRN Reason: Excessive bleeding Naloxone HCl (Narcan) 0.1 mg IVPUSH SEECOMMENT PRN PRN Reason: Respiratory Depression Ondansetron HCl (Zofran) 4 mg IV Q4H PRN PRN Reason: Nausea/Vomiting Oxycodone/Acetaminophen (Percocet 325-5 Mg) 1 tab PO Q4H PRN PRN Reason: Pain (moderate 4-6) Oxycodone/Acetaminophen (Percocet 325-5 Mg) 2 tab PO Q4H PRN PRN Reason: Pain (moderate 4-6) Oxytocin (Pitocin) 10 unit IM ONETIME PRN PRN Reason: Excessive vaginal bleeding Prenat Multivit/[place]/Iron/Folic Ac ( Plus Iron) 1 each PO DAILY [facility] Simethicone (Simethicone) 160 mg PO QID [facility] Last Admin: 06/30/19 14:46 Dose: 160 mg Sodium Chloride (Saline Flush) 10 ml FLUSH ASDIRECTED PRN PRN Reason: Keep Vein Open Discontinued Medications Citric Acid/Sodium Citrate (Bicitra Solution) 30 ml PO ONETIME ONE Stop: 06/30/19 00:11 Last Admin: 06/30/19 07:09 Dose: 30 ml Citric Acid/Sodium Citrate (Bicitra Solution) Confirm Administered Dose 30 ml .ROUTE .STK-MED ONE Stop: 06/30/19 07:01 Last Admin: 06/30/19 07:04 Dose: Not Given Cefazolin Sodium/Dextrose 2 gm (/ Premix) 50 mls @ 100 mls/hr IV ONETIME ONE Stop: 06/30/19 00:39 Last Admin: 06/30/19 07:43 Dose: 100 mls/hr Oxytocin/Sodium Chloride (Pitocin In Ns 30 Unit/500 Ml) Confirm Administered Dose 60 unit in 1,000 mls @ as directed .ROUTE .STK-MED ONE Stop: 06/30/19 07:10 Tranexamic Acid 1,000 mg/ (Sodium Chloride) 110 mls @ as directed IV .STK-MED ONE Stop: 06/30/19 13:55 Ketorolac Tromethamine (Toradol) 30 mg IVPUSH .STK-MED ONE Stop: 06/30/19 13:55 Morphine Sulfate (Duramorph Pf) 0.2 mg .XX .STK-MED ONE Stop: 06/30/19 13:58 - Problem List & Annotations (1) care in third trimester SNOMED Code(s): 637341884, 19702632, 53098800, 588077536, 775559058 Code(s): Z34.93 - ENCNTR FOR SUPRVSN OF NORMAL PREG, UNSP, THIRD TRIMESTER Status: Acute Current Visit: Yes (2) Drug use affecting in third trimester SNOMED Code(s): 57491380, 57587954, 905282185 Code(s): O99.323 - DRUG USE COMPLICATING , THIRD TRIMESTER Status : Acute Current Visit: Yes (3) Supervision of high risk due to social problems, third trimester SNOMED Code(s): 48073693 Code(s): O09.73 - SUPRVSN OF HIGH RISK PREG DUE TO SOCIAL PROBLEMS, THIRD TRI Status: Acute Current Visit: No (4) Supervision of high-risk with insufficient care in third trimester SNOMED Code(s): 7717838706250, 42175744, 5340295837976 Code(s): O09.33 - SUPRVSN OF PREG W INSUFFICIENT ANTENAT CARE, THIRD TRIMESTER Status: Acute Current Visit: No (5) History of delivery SNOMED Code(s): 380919149 Code(s): Z98.891 - HISTORY OF UTERINE SCAR FROM PREVIOUS SURGERY Status: Acute Current Visit: Yes (6) History of hemorrhage SNOMED Code(s): 778604671 Code(s): Z86.2 - PRSNL HISTORY OF DIS OF THE BLD/BLD-FORM ORG/IMMUN MECHNSM Status: Acute Current Visit: Yes (7) History of pre-eclampsia SNOMED Code(s): 867787386439880 Code(s): Z87.59 - PERSONAL HISTORY OF COMP OF PREG, CHLDBRTH AND THE PUERP Status: Acute Current Visit: Yes (8) GBS (group B Streptococcus carrier), +RV culture, currently SNOMED Code(s): 2236730355303, 355369081, 9299950194799 Code(s): O99.820 - STREPTOCOCCUS B CARRIER STATE COMPLICATING Status: Acute Current Visit: Yes - Problem List Review Problem List Initiated/Reviewed/Updated: Yes - My Orders Last 24 Hours: My Active Orders 06/30/19 00:10 Patient Status [ADT] Routine Notify Provider Vital Signs OB [RC] ASDIRECTED POC Labs [RC] ASDIRECTED Peripheral IV Care [RC] ,20 Vital Signs [RC] 04,08,12,16,20,00,04,08 Consult to Case Management/Tube Operator [CONS] Routine Carboprost Tromethamine [Hemabate DS] 250 mcg IM ASDIRECTED PRN Methylergonovine [Methergine] 0.2 mg PO ONETIME PRN Oxytocin [Pitocin] 10 unit IM ONETIME PRN Sodium Chloride 0.9% [Saline Flush] 10 ml FLUSH ASDIRECTED PRN Tranexamic Acid [Cyklokapron] 1,000 mg Sodium Chloride 0.9% [Normal Saline] 100 ml IV ONETIME Peripheral IV Insertion Adult [OM.PC] Routine Schedule Procedure [COMM] Per Unit Routine Resuscitation Status Routine 06/30/19 00:15 Lactated Ringers [Ringers, Lactated] 1,000 ml IV .BOLUS Lactated Ringers [Ringers, Lactated] 1,000 ml IV ASDIRECTED Oxytocin/Normal Saline [Pitocin in NS 30 UNIT/500 ML] 30 unit in 500 ml IV TITRATE 06/30/19 09:02 Intake and Output [RC] Q8H Notify Provider Intake and Out [RC] ASDIRECTED Acetaminophen [Tylenol] 650 mg PO Q6H PRN Acetaminophen/oxyCODONE [Percocet 325-5 MG] 1 tab PO Q4H PRN Acetaminophen/oxyCODONE [Percocet 325-5 MG] 2 tab PO Q4H PRN Docusate Sodium [Colace] 100 mg PO Q12H PRN Methylergonovine [Methergine] 0.2 mg IM ONETIME PRN Naloxone [Narcan] 0.1 mg IVPUSH SEECOMMENT PRN Ondansetron [Zofran] 4 mg IV Q4H PRN diphenhydrAMINE [Benadryl] 25 mg IVPUSH Q6H PRN ePHEDrine [ePHEDrine sulfate] 5 mg IVPUSH SEECOMMENT PRN miSOPROStol [Cytotec] 800 mcg RECTAL ASDIRECTED PRN 06/30/19 09:03 Antiembolic Devices [RC] 08,20 Bedrest [RC] ASDIRECTED Communication Order [RC] PER UNIT ROUTINE Communication Order [RC] Per Unit Routine RT Incentive Spirometry [RC] Q2HWA Urinary Catheter Removal [RC] 0600 CBC W/O DIFF,HEMOGRAM [HEME] Routine Antiembolic Hose [OM.PC] Per Unit Routine Assess Lochia [WOMSER] Per Unit Routine Assess Uterine Involution [WOMSER] Per Unit Routine Breast Pump [WOMSER] Per Unit Routine Sequential Compression Device [OM.PC] Per Unit Routine 06/30/19 09:15 Lactated Ringers [Ringers, Lactated] 1,000 ml IV ASDIRECTED 06/30/19 13:00 Simethicone 160 mg PO QID 06/30/19 14:00 Ketorolac [Toradol] 15 mg IVPUSH Q6H 06/30/19 Breakfast Clear Liquid Diet [DIET] Nothing Per Oral Diet [DIET] 06/30/19 Dinner Nothing Per Oral Diet [DIET] 06/30/19 Lunch Nothing Per Oral Diet [DIET] 07/01/19 09:00 Vit with Ca/FA/Iron [ Plus Iron] 1 each PO DAILY 07/01/19 10:00 Ibuprofen [Motrin] 800 mg PO Q8H PRN - Assessment Assessment:: 23-year-old, now , status post repeat section at 37w1d gestation - Plan Plan:: 1. Initiate routine 2. Plans to bottlefeed 3. Repeat hemoglobin in AM 4. manager administrative services has been consults 5 Anticipate discharge 07/03/2019 Flores He MD
[2019-06-30] MEDS ORDERED: Naloxone 2 MG/2 ML Syringe ONE ×2 (17:31→18:07)
[2019-06-30] MEDS ORDERED: Lactated Ringers 1,000 ML IV ONE (17:48)
[2019-06-30] MEDS ORDERED: Naloxone 2 MG/2 ML Syringe IVPUSH ONE (17:48)
[2019-06-30] MEDS ORDERED: LORazepam 2 MG/ML Syringe ONE (18:48)
[2019-06-30] MEDS ORDERED: Oxytocin/Normal Saline 30 UNIT/500 ML BAG IV ONE (19:01)
--- NOTE | 2019-06-30 19:20 | PCM.DCSUM1 ---
Discharge Summary - Hospital Course Free Text/Narrative:: 23-year-old, now , status post repeat section at 37w1d for history of thin lower uterine segment in 2 prior sections. Diagnosis: Stroke: No - Discharge Data Discharge Date: 06/30/19 Discharge Disposition: DC/Tfer to Acute Hospital 02 Condition: Good - Referral to Home Health Primary Care Physician: Felipe Huntley MD - Discharge Diagnosis/Problem(s) (1) care in third trimester SNOMED Code(s): 511370602, 10607566, 69149843, 940778650, 260303643 ICD Code: Z34.93 - ENCNTR FOR SUPRVSN OF NORMAL PREG, UNSP, THIRD TRIMESTER Status: Acute Current Visit: Yes (2) Drug use affecting in third trimester SNOMED Code(s): 50753779, 60431752, 968482544 ICD Code: O99.323 - DRUG USE COMPLICATING , THIRD TRIMESTER Status : Acute Current Visit: Yes (3) Supervision of high risk due to social problems, third trimester SNOMED Code(s): 49941471 ICD Code: O09.73 - SUPRVSN OF HIGH RISK PREG DUE TO SOCIAL PROBLEMS, THIRD TRI Status: Acute Current Visit: No (4) Supervision of high-risk with insufficient care in third trimester SNOMED Code(s): 5171077694785, 29767548, 3110905552622 ICD Code: O09.33 - SUPRVSN OF PREG W INSUFFICIENT ANTENAT CARE, THIRD TRIMESTER Status: Acute Current Visit: No (5) History of delivery SNOMED Code(s): 316903866 ICD Code: Z98.891 - HISTORY OF UTERINE SCAR FROM PREVIOUS SURGERY Status: Acute Current Visit: Yes (6) History of hemorrhage SNOMED Code(s): 813494870 ICD Code: Z86.2 - PRSNL HISTORY OF DIS OF THE BLD/BLD-FORM ORG/IMMUN MECHNSM Status: Acute Current Visit: Yes (7) History of pre-eclampsia SNOMED Code(s): 828814801768253 ICD Code: Z87.59 - PERSONAL HISTORY OF COMP OF PREG, CHLDBRTH AND THE PUERP Status: Acute Current Visit: Yes (8) GBS (group B Streptococcus carrier), +RV culture, currently SNOMED Code(s): 0604505480741, 897654662, 8710644573454 ICD Code: O99.820 - STREPTOCOCCUS B CARRIER STATE COMPLICATING Status: Acute Current Visit: Yes (9) Seizure SNOMED Code(s): 01002190 ICD Code: R56.9 - UNSPECIFIED CONVULSIONS Status: Acute Current Visit: Yes - Patient Summary/Data Operative Procedure(s) Performed: Repeat section Complications: Developed hypotension and seized x 3 at 10 hours post Consults: Consultations 06/30/19 00:10 Consult to Case Management/Firewall Administrator [CONS] Routine Hospital Course: Patient underwent repeat section at 0800 today at 37w1d for history of thin uterine segment. section was remarkable only for adhesion of the fascia and peritoneal layer. EBL was 600 cc. Patient did receive 2 gram IV Rocephin and 1 gram TXA prior to incision. course was unremarkable until 1720. Patient sat up, complained of being warm and had a 15-20 second episode of possible seizure like activity. Patient was noted to be hypotensive at 71/39. Patient received 2 mg Narcan and 2 liters IV fluids. Patient did recover and was observed for 30 minutes. IV fluids were continued and decreased to 250 mL/hr. At 1800, patient had a second episode lasting about 10 seconds. She again recovered. Because of recurrent nature of her likely seizures and hypotension, I spoke to Dr. Nickolas Walls, TOLL LINE REPAIRER from [facility] who accepted transfer of the patient. [facility] was already present so proceeded with transfer. Patient was given 1 liter of unmatched blood. A second unit was sent with [facility]. Patient had another seizure episode lasting about 35 seconds. This did resolve spontaneously. Patient did admit to regular methamphetamine use every other day or so with the last use yesterday. - Discharge Plan *PRESCRIPTION DRUG MONITORING PROGRAM REVIEWED*: Not Applicable *COPY OF PRESCRIPTION DRUG MONITORING REPORT IN PATIENT SULEMA: Not Applicable Home Medications: Home Meds Vit/FA/Fe Fumarate/Se [ MTR] 1 tab PO DAILY 06/30/19 [History] Oxygen Therapy Mode: Simple Mask - Discharge Summary/Plan Comment DC Time >30 min.: Yes Discharge Summary/Plan Comment: Transfer via [facility] to [facility]. See hospital course for details. Flores He MD - General Info Date of Service: 06/30/19 - Review of Systems General: Reports: Fatigue Skin: Reports: Pallor Neurological: Reports: Seizure, Weakness - Patient Data Vitals - Most Recent: Last Vital Signs Temp 36.6 C 06/30/19 14:00 Pulse 61 06/30/19 15:00 Resp 16 06/30/19 15:00 BP 130/78 06/30/19 15:00 Pulse Ox 98 06/30/19 12:00 Weight - Most Recent: 91.172 kg I&O - Last 24 hours: Intake & Output 06/30/19 06/30/19 06/30/19 06:59 14:59 22:59 Intake Total 2850 600 Output Total 100 200 Balance 2750 400 Lab Results - Last 24 hrs: Laboratory Results - last 24 hr 06/30/19 06/30/19 06/30/19 Range/Units 06:36 06:36 06:58 WBC 13.4 H (5.0-10.0) 10^3/uL RBC 4.60 (4.2-5.4) 10^6/uL Hgb 11.8 L (12.0-16.0) g/dL Hct 36.9 L (37.0-47.0) % MCV 80.2 (80-100) fL MCH 25.7 L (27.0-34.0) pg MCHC 32.0 L (33.0-35.0) g/dL Plt Count 188 (150-450) 10^3/uL Neut % (Auto) 75.3 H (42.2-75.2) % Lymph % (Auto) 18.6 L (20.5-50.1) % [place] % (Auto) 3.7 (2-8) % Eos % (Auto) 2.2 (1.0-3.0) % Baso % (Auto) 0.2 (0.0-1.0) % Urine Opiates Screen Negative (NEGATIVE) Ur Oxycodone Screen Negative (NEGATIVE) Urine Methadone Screen Negative (NEGATIVE) Ur Barbiturates Screen Negative (NEGATIVE) U Tricyclic Antidepress Negative (NEGATIVE) Ur Phencyclidine Scrn Negative (NEGATIVE) Ur Amphetamine Screen Positive H (NEGATIVE) U Methamphetamines Scrn Positive H (NEGATIVE) Urine MDMA Screen Negative (NEGATIVE) U Benzodiazepines Scrn Negative (NEGATIVE) Urine Cocaine Screen Negative (NEGATIVE) U Marijuana (THC) Screen Negative (NEGATIVE) Blood Type O POSITIVE Gel Antibody Screen Negative Crossmatch See Detail 06/30/19 Range/Units 17:43 WBC 13.9 H (5.0-10.0) 10^3/uL RBC 3.29 L (4.2-5.4) 10^6/uL Hgb 8.5 L D (12.0-16.0) g/dL Hct 27.3 L (37.0-47.0) % MCV 83.0 (80-100) fL MCH 25.8 L (27.0-34.0) pg MCHC 31.1 L (33.0-35.0) g/dL Plt Count 115 L (150-450) 10^3/uL Neut % (Auto) (42.2-75.2) % Lymph % (Auto) (20.5-50.1) % [place] % (Auto) (2-8) % Eos % (Auto) (1.0-3.0) % Baso % (Auto) (0.0-1.0) % Urine Opiates Screen (NEGATIVE) Ur Oxycodone Screen (NEGATIVE) Urine Methadone Screen (NEGATIVE) Ur Barbiturates Screen (NEGATIVE) U Tricyclic Antidepress (NEGATIVE) Ur Phencyclidine Scrn (NEGATIVE) Ur Amphetamine Screen (NEGATIVE) U Methamphetamines Scrn (NEGATIVE) Urine MDMA Screen (NEGATIVE) U Benzodiazepines Scrn (NEGATIVE) Urine Cocaine Screen (NEGATIVE) U Marijuana (THC) Screen (NEGATIVE) Blood Type Gel Antibody Screen Crossmatch Med Orders - Current: Current Medications Acetaminophen (Tylenol) 650 mg PO Q6H PRN PRN Reason: mild pain or fever Carboprost Tromethamine (Hemabate Ds) 250 mcg IM ASDIRECTED PRN PRN Reason: Excessive vaginal bleeding Diphenhydramine HCl (Benadryl) 25 mg IVPUSH Q6H PRN PRN Reason: Itching or Nausea Last Admin: 06/30/19 11:20 Dose: 25 mg Docusate Sodium (Colace) 100 mg PO Q12H PRN PRN Reason: Constipation Ephedrine Sulfate (Ephedrine Sulfate) 5 mg IVPUSH SEECOMMENT PRN PRN Reason: Other Tranexamic Acid 1,000 mg/ (Sodium Chloride) 110 mls @ 660 mls/hr IV ONETIME PRN PRN Reason: Bleeding Oxytocin/Sodium Chloride (Pitocin In Ns 30 Unit/500 Ml) 30 unit in 500 mls @ 2 mls/hr IV TITRATE DEONDRE; Protocol Last Titration: 06/30/19 12:14 Dose: 0 mls/hr Lactated Ringer's (Ringers, Lactated) 1,000 mls @ 125 mls/hr IV ASDIRECTED [facility] Last Admin: 06/30/19 12:16 Dose: 125 mls/hr Lactated Ringer's (Ringers, Lactated) 1,000 mls @ 250 mls/hr IV ASDIRECTED DEONDRE Stop: 06/30/19 22:29 Ibuprofen (Motrin) 800 mg PO Q8H PRN PRN Reason: mild pain or fever Ketorolac Tromethamine (Toradol) 15 mg IVPUSH Q6H [facility] Stop: 07/01/19 02:01 Last Admin: 06/30/19 14:45 Dose: 15 mg Methylergonovine Maleate (Methergine) 0.2 mg PO ONETIME PRN PRN Reason: Excessive vaginal bleeding Methylergonovine Maleate (Methergine) 0.2 mg IM ONETIME PRN PRN Reason: Excessive Vaginal Bleeding Misoprostol (Cytotec) 800 mcg RECTAL ASDIRECTED PRN PRN Reason: Excessive bleeding Naloxone HCl (Narcan) 0.1 mg IVPUSH SEECOMMENT PRN PRN Reason: Respiratory Depression Ondansetron HCl (Zofran) 4 mg IV Q4H PRN PRN Reason: Nausea/Vomiting Oxycodone/Acetaminophen (Percocet 325-5 Mg) 1 tab PO Q4H PRN PRN Reason: Pain (moderate 4-6) Oxycodone/Acetaminophen (Percocet 325-5 Mg) 2 tab PO Q4H PRN PRN Reason: Pain (moderate 4-6) Oxytocin (Pitocin) 10 unit IM ONETIME PRN PRN Reason: Excessive vaginal bleeding Prenat Multivit/House Wrecker/Iron/Folic Ac ( Plus Iron) 1 each PO DAILY [facility] Simethicone (Simethicone) 160 mg PO QID [facility] Last Admin: 06/30/19 18:26 Dose: Not Given Sodium Chloride (Saline Flush) 10 ml FLUSH ASDIRECTED PRN PRN Reason: Keep Vein Open Discontinued Medications Citric Acid/Sodium Citrate (Bicitra Solution) 30 ml PO ONETIME ONE Stop: 06/30/19 00:11 Last Admin: 06/30/19 07:09 Dose: 30 ml Citric Acid/Sodium Citrate (Bicitra Solution) Confirm Administered Dose 30 ml .ROUTE .STK-MED ONE Stop: 06/30/19 07:01 Last Admin: 06/30/19 07:04 Dose: Not Given Cefazolin Sodium/Dextrose 2 gm (/ Premix) 50 mls @ 100 mls/hr IV ONETIME ONE Stop: 06/30/19 00:39 Last Admin: 06/30/19 07:43 Dose: 100 mls/hr Lactated Ringer's (Ringers, Lactated) 1,000 mls @ 500 mls/hr IV .BOLUS DEONDRE Oxytocin/Sodium Chloride (Pitocin In Ns 30 Unit/500 Ml) Confirm Administered Dose 60 unit in 1,000 mls @ as directed .ROUTE .STK-MED ONE Stop: 06/30/19 07:10 Lactated Ringer's (Ringers, Lactated) 1,000 mls @ 125 mls/hr IV ASDIRECTED DEONDRE Tranexamic Acid 1,000 mg/ (Sodium Chloride) 110 mls @ as directed IV .STK-MED ONE Stop: 06/30/19 13:55 Lactated Ringer's (Ringers, Lactated) 1,000 mls @ 999 mls/hr IV BOLUS ONE Stop: 06/30/19 18:48 Last Admin: 06/30/19 17:36 Dose: 999 mls/hr Ketorolac Tromethamine (Toradol) 30 mg IVPUSH .STK-MED ONE Stop: 06/30/19 13:55 Lorazepam (Ativan) Confirm Administered Dose 2 mg .ROUTE .STK-MED ONE Stop: 06/30/19 18:49 Morphine Sulfate (Duramorph Pf) 0.2 mg .XX .STK-MED ONE Stop: 06/30/19 13:58 Naloxone HCl (Narcan) Confirm Administered Dose 2 mg .ROUTE .STK-MED ONE Stop: 06/30/19 17:32 Last Admin: 06/30/19 17:50 Dose: Not Given Naloxone HCl (Narcan) 2 mg IVPUSH ONETIME ONE Stop: 06/30/19 17:49 Last Admin: 06/30/19 17:32 Dose: 2 mg Naloxone HCl (Narcan) Confirm Administered Dose 2 mg .ROUTE .STK-MED ONE Stop: 06/30/19 18:08 Last Admin: 06/30/19 18:07 Dose: 2 mg - Exam General: Reports: Alert, Oriented HEENT: Reports: Mucous Membr. Moist/[place] Lungs: Reports: Clear to Auscultation, Normal Respiratory Effort Cardiovascular: Reports: Regular Rhythm, Tachycardia GI/Abdominal Exam: Soft, Non-Tender (Female) Exam: Other (Vaginal bleeding is appropriate) Skin: Reports: Cool, Other (Pale) Wound/Incisions: Reports: Other (Dressing intact with minimal drainage)
[2019-07-01] MEDS ORDERED: Prenatal Multivitamin with Calcium/Folic Acid/Iron Tab PO SCH (09:00)
[2019-07-01] MEDS ORDERED: Ibuprofen 800 MG Tab PO PRN (10:00)
== END 2019-06-30 19:02 | DRG 787 ==
LOC: DL.OB 06:25 → OBSVTOIN 08:13 → DL.OB 08:13 → EDSTATUS 12:00
PROVIDERS: ADMIT Family Medicine; ATTEND Family Medicine
PROC: 10D00Z1 Extraction of Products of Conception, Low, Open Approach (ICD-10-PCS; principal; 2019-06-30)
PROC: 30233N1 Transfusion of Nonautologous Red Blood Cells into Peripheral Vein, Percutaneous Approach (ICD-10-PCS; 2019-06-30)
DX: O34.211 Maternal care for low transverse scar from previous cesarean delivery (principal); O72.1 Other immediate postpartum hemorrhage; D62 Acute posthemorrhagic anemia; O99.824 Streptococcus B carrier state complicating childbirth; O90.89 Other complications of the puerperium, not elsewhere classified; R56.9 Unspecified convulsions; O99.334 Smoking (tobacco) complicating childbirth; F17.210 Nicotine dependence, cigarettes, uncomplicated; I95.81 Postprocedural hypotension; Z3A.37 37 weeks gestation of pregnancy; Z37.0 Single live birth; O09.33 Supervision of pregnancy with insufficient antenatal care, third trimester; Z86.2 Personal history of diseases of the blood and blood-forming organs and certain disorders involving the immune mechanism; Z87.59 Personal history of other complications of pregnancy, childbirth and the puerperium; Z88.2 Allergy status to sulfonamides; Z88.1 Allergy status to other antibiotic agents; O90.81 Anemia of the puerperium
CPT/HCPCS: 36415; 36430; 59025; 80305-QW; 82962; 85025; 85027; 86850; 86900; 86901; 86920; 86922; A9270-GY; J0690; J1200; J1885; J2274; J2310; J2590; J7050; J7120; P9016

== ENCOUNTER 2022-01-19 06:09 | Emergency (ER) | payer MEDICAID ==
[2022-01-19] MEDS ORDERED: Ondansetron 4 MG/2 ML SDV IVPUSH ONE (06:46)
[2022-01-19] MEDS ORDERED: HYDROmorphone 1 MG/ML Syringe IVPUSH ONE (06:46)
[2022-01-19] MEDS ORDERED: Sodium Chloride 0.9% 1,000 ML IV ONE ×2 (06:46→09:43)
[2022-01-19 06:58] LABS: ANION GAP 17.3 mEq/L (7-13); CHLORIDE,CL 98 mmol/L (98-107); SODIUM,NA 135 mmol/L (136-145)
[2022-01-19 07:04] VITALS: BP 126/80; PULSE 76
[2022-01-19] MEDS ORDERED: Iopamidol 612 MG/ML 100 ML Bottle IVPUSH ONE (07:34)
[2022-01-19 07:47] LABS: AMPHETAMINES,URINE POSITIVE (NEGATIVE); BARBITURATES,URINE NEGATIVE (NEGATIVE); BENZODIAZEPINE,URINE NEGATIVE (NEGATIVE); MDMA (ECSTASY), URINE POSITIVE (NEGATIVE); METHADONE,URINE NEGATIVE (NEGATIVE); METHAMPHETAMINES,URINE POSITIVE (NEGATIVE); OPIATES,URINE NEGATIVE (NEGATIVE); OXYCODONE,URINE NEGATIVE (NEGATIVE); PHENCYCLIDINE,URINE NEGATIVE (NEGATIVE); TCA,URINE NEGATIVE (NEGATIVE)
[2022-01-19] MEDS ORDERED: Piperacillin/Tazobactam 3.375 GM in Sodium Chloride 0.9% 100 ML IV ONE (09:43)
== END 2022-01-19 10:16 ==
LOC: DL.ED 06:09
DX: K35.20 Acute appendicitis with generalized peritonitis, without abscess (principal); Z72.0 Tobacco use; Z88.1 Allergy status to other antibiotic agents
CPT/HCPCS: 36415; 74177; 80053; 80305-QW; 81001; 82150; 83605; 83690; 83735; 84703; 85025; 87040; 87086; 87088; 87186; 96365; 96375; 99285-25; J1170; J2405; J2543; J7030; Q9967

== ENCOUNTER 2022-05-23 21:30 | Emergency (ER) | payer MEDICAID ==
[2022-05-23 21:40] VITALS: BP 145/85; PULSE 91
== END 2022-05-23 22:33 ==
LOC: DL.ED 21:30
DX: S41.131A Puncture wound without foreign body of right upper arm, initial encounter (principal); F19.90 Other psychoactive substance use, unspecified, uncomplicated; Z88.1 Allergy status to other antibiotic agents; W27.3XXA Contact with needle (sewing), initial encounter
CPT/HCPCS: 73070-RT; 99283; 99284

== ENCOUNTER 2023-08-13 17:31 | Observation (INO) | payer MEDICAID, OTHER ==
[2023-08-13] MEDS ORDERED: Sodium Chloride 0.9% 1,000 ML IV ONE (17:44)
[2023-08-13 18:13] LABS: ETHANOL BLOOD MEDICAL 51 mg/dL (0)
[2023-08-13] MEDS: Naloxone 2 MG/2 ML Syringe IVPUSH PRN ×2 (18:42→18:59)
[2023-08-13] MEDS ORDERED: Naloxone 2 MG in Sodium Chloride 0.9% 500 ML IV SCH ×6 (19:15)
[2023-08-13] MEDS ORDERED: HYDROmorphone 0.5 MG/0.5 ML Syringe IVPUSH PRN (20:10)
[2023-08-13] MEDS ORDERED: Polyethylene Glycol 3350 Powder 17 GM Packet PO PRN (20:10)
[2023-08-13] MEDS ORDERED: Sennosides/Docusate Sodium 50-8.6 MG Tab PO PRN (20:10)
[2023-08-13] MEDS ORDERED: Ondansetron 4 MG/2 ML SDV IVPUSH PRN (20:10)
[2023-08-13] MEDS ORDERED: Ketorolac 30 MG/ML SDV IVPUSH PRN (20:10)
[2023-08-13] MEDS ORDERED: Naloxone 2 MG/2 ML Syringe IVPUSH PRN (20:10)
[2023-08-13] MEDS ORDERED: Ibuprofen 600 MG Tab PO PRN (20:10)
[2023-08-13] MEDS ORDERED: Sodium Chloride 0.9% 10 ML Syringe FLUSH PRN (20:10)
[2023-08-13] MEDS ORDERED: Magnesium Hydroxide 400 MG/5 ML Susp 30 ML Cup PO PRN (20:10)
[2023-08-13] MEDS ORDERED: Albuterol/Ipratropium 3.0-0.5 MG/3 ML Neb Soln NEB PRN (20:10)
[2023-08-13] MEDS ORDERED: LORazepam 2 MG/ML SDV IV PRN (20:17)
[2023-08-13] MEDS ORDERED: MVI, Adult with Vitamin K 10 ML, Folic Acid 1 MG, Thiamine 100 MG in Lactated Ringers 1... IV ONE ×4 (20:17)
[2023-08-13] MEDS ORDERED: LORazepam 0.5 MG Tab PO PRN (20:17)
[2023-08-13] MEDS ORDERED: Thiamine 100 MG in Sodium Chloride 0.9% 50 ML IV ONE (20:18)
[2023-08-13] MEDS ORDERED: traMADol 50 MG Tab PO PRN (20:20)
[2023-08-13] MEDS ORDERED: hydrALAZINE 20 MG/ML SDV IVPUSH PRN (20:21)
[2023-08-13] MEDS ORDERED: Flumazenil 0.1 MG/ML 5 ML MDV IVPUSH PRN (20:21)
[2023-08-13] MEDS ORDERED: LORazepam 2 MG/ML SDV IVPUSH PRN (20:21)
[2023-08-13] MEDS ORDERED: Pantoprazole 40 MG Vial IVPUSH ONE (20:21)
[2023-08-13] MEDS ORDERED: Metoprolol Tartrate 5 MG/5 ML SDV IVPUSH PRN (20:21)
[2023-08-13] MEDS ORDERED: Sodium Chloride 0.9% 1,000 ML IV SCH (20:30)
[2023-08-13 20:51] LABS: HEMATOCRIT 41.6 % (37.0-47.0); MEAN CORPUSCULAR HEMOGLOBIN 30.6 pg (27.0-34.0); MEAN CORPUSCULAR HGB CONC 33.7 g/dL (33.0-35.0); RED BLOOD CELL COUNT 4.57 10^6/uL (4.2-5.4); WHITE BLOOD CELL COUNT,WBC 15.9 10^3/uL (5.0-10.0)
[2023-08-13] MEDS ORDERED: Nicotine 21 MG/24 Hr Patch TRDERM SCH (21:00)
[2023-08-13 21:09] LABS: A/G RATIO 0.9; ALBUMIN 3.4 g/dL (3.4-5.0); ANION GAP 11.6 mEq/L (7-13); BILIRUBIN TOTAL 0.4 mg/dL (0.2-1.0); CALCIUM 8.4 mg/dL (8.5-10.1); CREATININE 0.68 mg/dL (0.55-1.02); EST CRCL DRUG DOSING (CG) 108.85 mL/min; MAGNESIUM 1.9 mg/dL (1.8-2.4); POTASSIUM,K 3.6 mmol/L (3.5-5.1)
[2023-08-13] MEDS: Sodium Chloride 0.9% 10 ML Syringe FLUSH SCH (21:15)
[2023-08-14 06:27] LABS: HEMATOCRIT 40.5 % (37.0-47.0); HEMOGLOBIN 13.1 g/dL (12.0-16.0); MEAN CORPUSCULAR HEMOGLOBIN 30.5 pg (27.0-34.0); MEAN CORPUSCULAR HGB CONC 32.3 g/dL (33.0-35.0); MEAN CORPUSCULAR VOLUME 94.4 fL (80-100); RED BLOOD CELL COUNT 4.29 10^6/uL (4.2-5.4); WHITE BLOOD CELL COUNT,WBC 10.1 10^3/uL (5.0-10.0)
[2023-08-14 06:57] LABS: A/G RATIO 0.88; ALBUMIN 2.9 g/dL (3.4-5.0); ANION GAP 10.8 mEq/L (7-13); BILIRUBIN TOTAL 0.5 mg/dL (0.2-1.0); BUN/CREATININE RATIO 26.5 (No establ ref range); CALCIUM 8.4 mg/dL (8.5-10.1); CREATININE 0.68 mg/dL (0.55-1.02); EST CRCL DRUG DOSING (CG) 108.85 mL/min; MAGNESIUM 1.7 mg/dL (1.8-2.4); POTASSIUM,K 3.8 mmol/L (3.5-5.1); PROTEIN TOTAL,TP 6.2 g/dL (6.4-8.2)
[2023-08-14] MEDS ORDERED: Magnesium Sulfate/Water 2 GM in Premix Bag 1 BAG IV ONE (07:07)
[2023-08-14 08:19] VITALS: BP 130/89; PULSE 74
[2023-08-14] MEDS: Sodium Chloride 0.9% 10 ML Syringe FLUSH SCH (08:29)
[2023-08-14] MEDS ORDERED: Nicotine 21 MG/24 Hr Patch TRDERM SCH (09:00)
[2023-08-14] MEDS ORDERED: Remove Patch NICOTINE PATCH TRDERM SCH ×2 (09:00)
[2023-08-14] MEDS ORDERED: Famotidine 20 MG Tab PO SCH (09:00)
[2023-08-14] MEDS ORDERED: Multivitamin Tab PO SCH (09:00)
[2023-08-14] MEDS ORDERED: Folic Acid 1 MG Tab PO SCH (21:00)
[2023-08-14] MEDS ORDERED: Thiamine 100 MG Tab PO SCH (21:00)
== END 2023-08-14 11:30 | disposition home or self-care (01) ==
LOC: DL.ED 17:31 → DL.MS 19:42 → UNDOADMOB 19:42 → DL.MS 20:09 → UNDODISOB 08-14 11:30
PROVIDERS: ADMIT Internal Medicine; ATTEND Internal Medicine
DX: T40.601A Poisoning by unspecified narcotics, accidental (unintentional), initial encounter (principal); R74.01 Elevation of levels of liver transaminase levels; G92.8 Other toxic encephalopathy; D72.829 Elevated white blood cell count, unspecified; O99.323 Drug use complicating pregnancy, third trimester; F41.9 Anxiety disorder, unspecified; F32.A Depression, unspecified; F17.210 Nicotine dependence, cigarettes, uncomplicated; Z90.710 Acquired absence of both cervix and uterus; Z79.899 Other long term (current) drug therapy; Z88.2 Allergy status to sulfonamides; Z88.8 Allergy status to other drugs, medicaments and biological substances
CPT/HCPCS: 36415; 71045; 80053; 80307; 82140; 82550; 83735; 84484; 84703; 85027; 86140; 93005; 93010; 96365; 96366; 96367; 96368; 96374; 96375; 96376; 99223; 99238; 99285; 99285-25; A9270-GY; C9113; G0378; J2310; J2405; J3411; J3475; J3490; J7030; J7040; J7120

== ENCOUNTER 2025-04-05 04:29 | Emergency (ER) | payer SELFPAY ==
[2025-04-05] MEDS: Diphtheria,Pertussis(Acell),Tetanus Vaccine 0.5 ML Syringe IM ONE (04:55)
[2025-04-05 05:44] VITALS: BP 127/80; PULSE 82
== END 2025-04-05 05:25 | disposition home or self-care (01) ==
LOC: DL.ED 04:29
DX: S61.011A Laceration without foreign body of right thumb without damage to nail, initial encounter (principal); Z88.8 Allergy status to other drugs, medicaments and biological substances; Z90.710 Acquired absence of both cervix and uterus; W26.8XXA Contact with other sharp object(s), not elsewhere classified, initial encounter
CPT/HCPCS: 12001; 90471; 90715; 99282; J2003